=== PATIENT | female | born 1995 | race Caucasian/White ===

== ENCOUNTER 2024-09-21 22:09 | Day surgery (SDC) | payer OTHER ==
[2024-09-21 22:28] VITALS: BMI 24.5
[2024-09-21] MEDS ORDERED: hydrALAZINE 20 MG/ML VIAL SLOW IVP PRN (22:58)
== END 2024-09-22 00:45 | disposition home or self-care (01) ==
LOC: CSHLD/OP 22:09
PROVIDERS: ATTEND Obstetrics & Gynecology
DX: O36.8120 Decreased fetal movements, second trimester, not applicable or unspecified (principal); Z3A.25 25 weeks gestation of pregnancy; Z79.899 Other long term (current) drug therapy
CPT/HCPCS: 99282